=== PATIENT | male | born 1980 | race African-American/Black ===

== ENCOUNTER 2018-11-01 03:16 | Emergency (ER) | payer OTHER ==
[~2018-11-01] VITALS: Ht 180.3 cm; Wt 90.7 kg
[2018-11-01 04:11] VITALS: BP 163/103
== END 2018-11-01 04:11 | disposition home or self-care (01) ==
LOC: ER 03:16
PROVIDERS: Emergency Medicine
DX: Z11.3 Encounter for screening for infections with a predominantly sexual mode of transmission (principal); F17.210 Nicotine dependence, cigarettes, uncomplicated